=== PATIENT | female | born 1970 | race Caucasian/White ===

== ENCOUNTER 2018-05-19 08:45 | Day surgery (SDC) | payer OTHER ==
[~2018-05-19 08:45] MED LIST: AMLODIPINE BESYL5 MG PO; ASA81 MG PO; COZAAR50 MG PO; HYDROCHLOROTHIA25 MG PO; LEVO-T88 MCG PO; PRAVASTATIN SOD20 MG PO
== END 2018-05-19 16:20 | disposition home or self-care (01) ==
LOC: CIR.AMB 08:45
DX: N93.8 Other specified abnormal uterine and vaginal bleeding (principal)